=== PATIENT | male | born 1980 | race Caucasian/White ===

== ENCOUNTER 2019-09-04 17:58 | Emergency (ER) | payer BC, SELFPAY ==
[2019-09-04 18:04] VITALS: BP 155/99; PULSE 88; RESP 17; TEMP 36.8; O2SAT 96; BMI 27.3
[2019-09-04 18:15] VITALS: BP 155/99; PULSE 88; RESP 17; TEMP 36.8; O2SAT 96; BMI 27.4
--- NOTE | 2019-09-04 18:22 | PC.NURSE ---
PAGED AT THIS TIME
--- NOTE | 2019-09-04 18:22 | PC.NURSE ---
ZULY KIRK APRN SPEAKING TO AT THIS TIME.
--- NOTE | 2019-09-04 18:52 | HMH.EDUTC ---
[facility] [place] Disposition Clinical Impression: Thrombosed hemorrhoids Disposition: Home, Self-Care Condition on Discharge: Good Instructions: DI for Hemorrhoids Additional Instructions: Follow up with the surgeon that I called. His name is Dr. Alas. His office number is . Call his office on Friday morning to be seen on Friday to Friday. Use the medications as directed. Eat a high fiber diet. Take the stool softeners as directed. GO TO THE ER FOR ANY WORSENING SYMPTOMS OR CONCERNS Prescriptions: Hydrocodone/Acetaminophen [[place] 5-325 Tablet] 1 each PO Q6HP PRN 2 Days #8 tab PRN Reason: Moderate Pain Prescription Printed Docusate Sodium [Colace] 100 mg PO DAILY #30 cap Transmission Status: Received by [facility][id number] Hydrocortisone [Hydrocortisone 2.5% Cream 28gm Tube] 1 applicatio TP QIDP PRN #1 bottle PRN Reason: Perineal Discomfort Transmission Status: Received by [id number] Hydrocortisone/Pramoxine [Proctofoam-Hc 1%-1% Foam] 10 gm RC QIDP PRN #1 bottle PRN Reason: Moderate Pain Transmission Status: Received by [id number] Referrals: Chico Mohan [Primary Care Provider] - Shon Alas MD [Staff Physician] - Forms: Work/School Release Time of Disposition: 19:00 Medical Decision Making - Medical Records Medical records reviewed: No: I reviewed the patient's medical records. - [place] Inquiry Pt receiving controlled substance: No Vital Signs: 09/04/19 18:04 09/04/19 18:15 09/04/19 19:01 Temperature 98.3 F 98.3 F 98.3 F Temperature Source Oral Oral Pulse Rate 88 Pulse Rate [Right Radial] 88 88 Respiratory Rate 17 17 17 Blood Pressure 155/99 H Blood Pressure [Right Arm] 155/99 H 155/99 H Blood Pressure Mean [Right Arm] 117 117 Blood Pressure Source [Right Arm] Manual Cuff/ Doppler Blood Pressure Position [Right Arm] Sitting 02 Sat by Pulse Oximetry 96 96 Oxygen Delivery Method Room Air Room Air Orders (Tests/Meds): ED MEDICATIONS Discontinued Medications Generic Name Dose Route Start Last Admin Trade Name Freq PRN Reason Stop Dose Admin Lidocaine HCl 15 ml 09/04/19 18:28 09/04/19 18:35 Lidocaine 2% Viscous Solution 15ml Udc PO 09/04/19 18:29 Not Given ONCE ONE Lidocaine HCl 1 ml 09/04/19 18:35 09/04/19 18:38 Lidocaine 4% Topical Soln 1ml TP 09/04/19 18:36 1 ml ONCE ONE Administration Medical Decision Narrative: I called and spoke to Dr. Alas (surgery) about this patient. He is to f/u in his office on Friday. [facility] [place] HPI - General Stated complaint: external hemroid Time Seen by Provider: 09/04/19 18:52 Mode of Arrival: Ambulatory Source of Information: Patient Limitations: No Limitations Description of Symptoms (Recalled from Triage Doc. by RN): PATIENT C/O PAINFUL EXTERNAL HEMORRHOID HEENT Symptoms (Recalled from RN notes): No Resp Symptoms (Recalled from RN notes): No Skin Symptoms (Recalled from RN notes): Yes MS Symptoms (Recalled from RN notes): No Functional Status (Recalled from RN notes): WNL - History of Present Illness Provider Complaint: He c/o hemorhoid pain that started earlier today. He has had a history of similar episodes a couple times in the past. He states that he is having significant pain. - Related Data Previous Rx's Medication Instructions Recorded Docusate Sodium [Colace] 100 mg PO DAILY #30 cap 09/04/19 Hydrocodone/Acetaminophen [[place] 1 each PO Q6HP PRN 2 Days #8 tab 09/04/19 5-325 Tablet] Hydrocortisone [Hydrocortisone 1 applicatio TP QIDP PRN #1 bottle 09/04/19 2.5% Cream 28gm Tube] Hydrocortisone/Pramoxine 10 gm RC QIDP PRN #1 bottle 09/04/19 [Proctofoam-Hc 1%-1% Foam] Allergies Allergy/AdvReac Type Severity Reaction Status Date / Time No Known Allergies Allergy Verified 09/04/19 18:21 - Worker's Comp Is this a Worker's Comp case?: No [facility] History - Hepatitis A Screen Drug use history?: No High risk sexual behaviors?: No H
[2019-09-04 19:01] VITALS: BP 155/99; PULSE 88; RESP 17; TEMP 36.8; O2SAT 96
== END 2019-09-04 19:05 | disposition home or self-care (01) ==
LOC: ER 18:03 → UTC 18:03
PROVIDERS: Emergency Provider Nurse Practitioner Family; PCP Family Medicine
DX: K64.5 Perianal venous thrombosis (principal)
CPT/HCPCS: 99201